=== PATIENT | male | born 1960 | race Caucasian/White ===

== ENCOUNTER → 2020-07-04 14:35 | Outpatient (CLI) | payer MEDICARE, SELFPAY ==
[2020-07-06 19:38] LABS: PSA, Free 0.97 ng/mL; Prostate Specific Ag 2.3 ng/mL (0.0-4.0)
== END ==
PROVIDERS: Visit Provider Urology
DX: R97.20 Elevated prostate specific antigen [PSA] (principal)
CPT/HCPCS: 36415; 84153; 84154

== ENCOUNTER → 2021-05-26 11:48 | Outpatient (CLI) | payer MEDICARE, SELFPAY ==
--- NOTE | 2021-05-26 12:35 | XR_ITS ---
PROCEDURE: XR CHEST PORTABLE CLINICAL HISTORY: COVID TESTING COMPARISON: No exams were available for comparison FINDINGS: The cardiomediastinal silhouette and pulmonary vascularity are within normal limits. COPD changes. No lobar consolidation or collapse. Faint increased density in the right upper lobe possibly due to developing nodule or scarring. There are no previous exams available for comparison. Follow-up suggested to confirm stability. No acute bony abnormalities. IMPRESSION: COPD. Questionable nodular density right upper lobe. Chest CT may provide further evaluation. Dictated by: Gaudencio Gonsalez MD 05/26/2021 13:39 Gaudencio Gonsalez MD in [place] 05/26/2021 13:39
[2021-05-26 13:04] LABS: Adenovirus,PCR Not Detected (NotDetected); Bordetella Pertussis Not Detected (NotDetected); Chlamydophila Pneumoniae, PCR Not Detected (NotDetected); Coronavirus 19, PCR Not Detected (NotDetected); Coronavirus 229E Not Detected (NotDetected); Coronavirus NL63 Not Detected (NotDetected); Coronavirus OC43 Not Detected (NotDetected); Coronovirus HKU1,PCR Not Detected (NotDetected); Human Metapneumovirus Not Detected (NotDetected); Influenza A, PCR Not Detected (NotDetected); Influenza AH1, 2009 Not Detected (NotDetected); Influenza AH1, PCR Not Detected (NotDetected); Influenza AH3,PCR Not Detected (NotDetected); Influenza B, PCR Not Detected (NotDetected); Microscopic, Urine URINE MICROSCOPIC (MICROSCOPIC); Mycoplasma Pneumoniae, PCR Not Detected (NotDetected); Parainfluenza 1, PCR Not Detected (NotDetected); Parainfluenza 2, PCR Not Detected (NotDetected); Parainfluenza 3, PCR Not Detected (NotDetected); Parainfluenza 4, PCR Not Detected (NotDetected); Respiratory Syncytial Virus Not Detected (NotDetected); Rhinovirus/Enterovirus Not Detected (NotDetected)
[2021-05-26 13:49] LABS: Basophils # 0.1 K/mm3 (0-0.2); Basophils % 1.4 % (0.1-2.0); Eosinophils # 0.1 K/mm3 (0.0-0.4); Eosinophils % 1.7 % (0.1-12.0); Hematocrit 43.9 % (42.0-52.0); Hemoglobin 14.6 g/dL (14.1-18.0); Lymphocytes # 1.9 K/mm3 (0.7-4.5); Lymphocytes % 31.3 % (10-50); Mean Corpuscular HGB Conc 33.3 g/dL (31.8-35.4); Mean Corpuscular Hemoglobin 32.3 pg (27.0-31.2); Mean Corpuscular Volume 97.1 fl (80-94); Mean Platelet Volume 8.6 fl (7.4-10.4); Monocytes # 0.4 K/mm3 (0.1-1.0); Monocytes % 6.9 % (1.7-9.3); Neutrophils # 3.5 K/mm3 (1.8-7.8); Neutrophils % 58.6 % (37.0-80.0); Platelet Count 280 K/mm3 (142-424); Red Blood Count 4.52 M/mm3 (4.60-6.20); Red Cell Distribution Width 12.3 % (11.5-17.5)
[2021-05-26 14:22] LABS: Appearance,Urine CLEAR (Clear); Bilirubin,Urine Negative (Negative); Blood, Urine TRACE-L (Negative); Color,Urine YELLOW (Yellow); Glucose,Urine (UA) Negative (Negative); Ketones,Urine Negative (Negative); Leukocyte Esterase,Urine Negative (Negative); Nitrate,Urine Negative (Negative); Protein,Urine Negative (Negative); Specific Gravity, Urine 1.015 (1.005-1.030)
[2021-05-26 14:49] LABS: WBC,Urine Occasional #/hpf (0-3)
[2021-05-26 14:50] LABS: Bacteria,Urine Trace /lpf; Squamous Epithelial Cell,Urine Occasional #/hpf (0-5)
== END ==
PROVIDERS: PCP Family Medicine; Visit Provider Family Medicine
DX: Z20.822 Contact with and (suspected) exposure to COVID-19 (principal)
CPT/HCPCS: 36415; 71045; 81001; 85025; 87581; 87632; 87798; C9803; U0003; U0005

== ENCOUNTER → 2022-02-03 15:01 | Outpatient (CLI) | payer MEDICARE, SELFPAY ==
--- NOTE | 2022-02-03 15:12 | XR_ITS ---
FINAL REPORT CLINICAL HISTORY: left lower rib pain FINDINGS: Left ribs Five views were obtained. There is no acute fracture or dislocation. No soft tissue abnormality is identified. IMPRESSION: No acute process. Reviewed, Interpreted and Dictated by Gus El III, MD Transcribed by Kaylin Fernández Authenticated and [facility]
--- NOTE | 2022-02-03 15:12 | XR_ITS ---
FINAL REPORT CLINICAL HISTORY: CHEST PAIN, left lower rib pain, smoker COMPARISON: 07/27/2020 FINDINGS: TWO-VIEW CHEST The heart size is normal. The mediastinum is normal. There is right apical scarring and pleural thickening. The lungs are otherwise clear. There is no pneumothorax. IMPRESSION: No acute cardiopulmonary process. Reviewed, Interpreted and Dictated by Gus El III, MD Transcribed by Kaylin Fernández Authenticated and [facility]
== END ==
PROVIDERS: PCP Family Medicine; Visit Provider Family Medicine
DX: R07.89 Other chest pain (principal)
CPT/HCPCS: 71046; 71100

== ENCOUNTER 2025-03-09 14:42 | Outpatient (CLI) | payer MEDICARE, SELFPAY ==
--- OUTSIDE RECORDS SUMMARY | 2025-03-09 14:44 | XMS_ITS | Clinical Summary ---
Author Organization [facility] Address [address] [place] [address] Phone Care Team Providers Care Corporate Buyer Name Role Phone Garo Lewis Primary Care Provider [phone] Allergies No known active allergies Medications dapagliflozin propanediol (FARXIGA) 10 mg Oral Tablet Take 1 Tablet by mouth daily. 30 Tablet 12/01/2023 12:34 PM EDT 4 Active atorvastatin (LIPITOR) 40 mg Oral Tablet Take 1 Tablet by mouth nightly. 30 Tablet 12/01/2023 12:34 PM EDT 4 Active lisinopriL (PRINIVIL;ZESTRIL) 20 mg Oral Tablet tablet Take 1 Tablet by mouth daily. 30 Tablet 12/01/2023 12:34 PM EDT 4 Active spironolactone (ALDACTONE) 25 mg Oral Tablet Take 1 Tablet by mouth daily. 30 Tablet 12/01/2023 12:34 PM EDT 4 Active apixaban (ELIQUIS) 5 mg Oral TabletIndications: Coronary artery disease involving miami coronary artery of miami heart without angina pectoris,Ischemic cardiomyopathy Take 1 Tablet by mouth 2 times daily. 28 Tablet 4 Active omeprazole (PRILOSEC) 40 mg Oral Capsule, Delayed Release(E.C.) TAKE 1 CAPSULE BY MOUTH BEFORE BREAKFAST 30 Capsule 1 5 Active metoprolol succinate (TOPROL-XL) 25 mg Oral Tablet Sustained Release 24 hr TAKE 1 TABLET BY MOUTH EVERY DAY 100 Tablet 5 Active Active Problems Problem Noted Date Diagnosed Date Acute ischemic stroke 11/28/2023 Hypertensive urgency 11/27/2023 Tobacco dependency 11/27/2023 Coronary artery disease invo lving miami coronary artery of miami heart without angina pectoris 05/06/2018 Ischemic cardiomyopathy 05/06/2018 COPD (chronic obstructive pulmonary disease) Infection 11/21/2012 Overview (12/25/2012): left tibia ST elevation myocardial infa rction involving left anterior descending (LAD) coronary artery Encounters Date Type Department Care Team Description 12/08/2024 [place] [address] Mo Sierra MD Medication Refill; Central Patient Navigator Outreach (Med Refills 100- H&V/) from Last 3 Months Immunizations Immunization Administration Dates Next Due Pneumococcal Polysaccharide 23 Valent 04/22/2018 Tdap 06/27/2012 Surgical History Surgery Date Site/Laterality Comments LEG SURGERY Left x12 due to infections KNEE SURGERY Right CARDIAC CATHETERIZATION Medical History Medical History Date Comments Infection 11/21/2012 left tibia SD (myocardial infarction) (HCC) 04/22/2018 LAD 100% - ballooned CAD (coronary artery disease) Shortness of breath Family History Medical History Relation Name Comments Heart Attack Father Fatal Anesth Problems Neg Hx Relation Name Status Comments Father Social History Tobacco Use Types Packs/Day Years Used Date Smoking Tobacco: Every Day Cigarettes 1.6 50.8 Started: 04/24/1974; Last attempted to quit: 04/24/2018 Smokeless Tobacco: Former Tobacco Cessation:Ready to Q uit: Not Asked; Counseling Given: Not Answered Alcohol Use Standard Drinks/Week Comments No 0 (1 standard drink = 0.6 oz pur e alcohol) [facility] Utilities Answer Date Recorded In the past 12 months has e electric, gas, oil, or water company threatened to shut off services in your home? No 11/28/2023 Overall Financial Resource Strain (CARDIA) Answe r Date Recorded How hard is it for you to pa y for the very basics like food, housing, medical care, and heating? Not very hard 11/28/2023 PHQ-2 Answer Date Recorded PHQ-2 Total Score 0 11/28/2023 [facility] [place] [facility] Occupat ional [facility] - Occupational Stress Questionnaire Answer Date Recorded Do you feel stress - tense, restless, nervous, or anxious, or unable to sleep at night because your mind is troubled all the time - these days? Not at all 11/28/2023 Exercise Vital Sign Answer Date Recorde d On average, how many days pe r week do you engage in moderate to strenuous exercise (like a brisk walk)? 5 days 11/28/2023 On average, how many minutes do you engage in exercise at this level? 30 min 11/28/2023 Hunger Vital Sign Answer Date Recorded Within the past 12 months, y ou worried that your food would run out before you got the money to buy more. Never true 11/28/19 24 Within the past 12 months, t he food you bought just didn't last and you didn't have money to get more. Never true 11/28/2023 [facility] IP Transportation Answer D ate Recorded In the past 12 months, has l ack of reliable transportation kept you from medical appointments, meetings, work or from getting things needed for daily living? No 11/28/2023 Sex and Gender Information Value Date Recorded Sex Assigned at Not on file Legal Sex Male 5:02 AM EDT Gender Identity Not on file Sexual Orientation Not on file Obstetrics History Last Filed Vital Signs Vital Sign Reading Time Taken Comments Blood Pressure 120/88 01/03/2024 2:11 PM EDT Pulse 80 01/03/2024 2:11 PM EDT Temperature 36.5 C (97.7 F) 12/01/2023 12:16 PM EDT Respiratory Rate 18 12/01/2023 12:16 PM EDT Oxygen Saturation 96% 01/03/2024 2:11 PM EDT Inhaled Oxygen Concentration - - Weight 82.6 kg (182 lb) 01/03/2024 2:11 PM EDT Height 182.9 cm (6') 01/03/2024 2:11 PM EDT Body Mass Index 24.68 01/03/2024 2:11 PM EDT Plan of Treatment Health Maintenance Due Date Last Done Comments Wellness Exam Medicare 09/08/1963 Hepatitis C Screening 09/08/1977 Cologuard 09/08/2004 FIT 09/08/2004 Sigmoidoscopy 09/08/2004 Virtual Colonography 09/08/2004 Low Dose Lung Cancer Screening 09/08/2009 Zoster (1 of 2) 09/08/2009 Pneumococcal Vaccine 50+ (2 of 2 - PCV) 04/22/2019 04/22/2018 RSV or 60+ (1 - Ris k 60-74 years 1-dose series) 2019 DTaP/TDaP/Td (2 - Td or Tdap) 06/27/2022, 08/28/1996 AAA Screening 09/08/2024 COVID-19 Vaccine (1 - 2023-2 5 season) 2025 Influenza Vaccine (#1) 2025 Colon Cancer Screening 10/25/2033 Colonoscopy 10/25/2033 10/26/2023 Hepatitis B Vaccine Aged Out No longe r eligible based on patient's age to complete this topic Meningococcal B Vaccine Aged Out No l onger eligible based on patient's age to complete this topic Procedures Procedure Name Priority Date/Time Associated Diagnosis Comments COLONOSCOPY Routine 10/26/2023 3:40 PM EDT Rectal bleeding Grade II hemorrhoids Screening for colon cancer from Last 3 Months or Most Recently Relevant to Health Maintenance Results * COLONOSCOPY (10/26/2023 3:40 PM EDT) Anatomical Region Laterality Modality Endoscopy Narrative 10/26/2023 3:46 PM EDT Table formatting from the original result was not included. Findings The bowel prep quality was fair, made good after additional irrigation and suction. One 3 mm polyp in the ascending colon; performed cold forceps biopsy with complete en bloc removal One 9 mm polyp in the splenic flexure; performed hot snare with complete en bloc removal and retrieved specimen One 4 mm polyp in the descending colon; performed cold forceps biopsy with complete removal One 4 mm polyp in the sigmoid colon; performed cold forceps biopsy with complete removal Internal large, prolapsing hemorrhoids observed during perianal exam Recommendation - Follow up pathology results. A pathology report should be available in MyChart in ~1 week. - An additional MyChart note with further recommendations should be available 1-2 weeks after the pathology report. - If you do not receive this information via MyChart or office phone call within 2-3 weeks, please call our office for findings & final recommendations. - Interval to next Colonoscopy will be based upon histology of polyp(s). - Referral to Colorectal Surgery for management of hemorrhoids. Indication Rectal bleeding, Screening for colon cancer, Grade II hemorrhoids Staff Staff Role John Vazquez MD Anesthesiologist Leigh Lincoln, SANDRA Valdivia MD PHD Performing Provider SANDRA Gibson CRNA, RN Innovation Analyst Medications See Anesthesia Record. Preprocedure A history and physical has been performed, and patient medication allergies have been reviewed. The patient's tolerance of previous anesthesia has been reviewed. The risks and benefits of the procedure and the sedation options and risks were discussed with the patient. All questions were answered and informed consent obtained. ASA 3 - Patient with severe systemic disease Details of the Procedure The patient underwent monitored anesthesia care, which was administered by an anesthesia professional. The patient's blood pressure, heart rate, level of consciousness, oxygen, respirations, ECG and ETCO2 were monitored throughout the procedure. A digital rectal exam was performed. The scope was introduced through the anus and advanced to the cecum. Retroflexion was performed in the rectum. Bowel prep was adequate. The patient's estimated blood loss was minimal (<5 mL). The procedure was not difficult. The patient tolerated the procedure well. There were no apparent adverse events. Patient provided education and educated on specific discharge instructions. Patient educated on medications given during the procedure and new medications for discharge. Patient verbalizes understanding of discharge education. Patient stable and awaiting transport for discharge. Events Procedure Events Event Event Time ENDO SCOPE IN TIME 10/26/2023 3:05 PM ENDO SCOPE OUT TIME 10/26/2023 3:12 PM ENDO SCOPE IN TIME 10/26/2023 3:17 PM ENDO CECUM REACHED 10/26/2023 3:21 PM ENDO SCOPE OUT TIME 10/26/2023 3:38 PM Specimens ID Type Source Tests Collected by Time 1 : gastric biopsy Tissue Gastric PATHOLOGY TISSUE REQUEST Ez Valdivia MD PHD 10/26/2023 1508 2 : lower esophagus biopsy Tissue Esophagus PATHOLOGY TISSUE REQUEST Ez Valdivia MD PHD 10/26/2023 1511 3 : ascending colon polyp via forceps Tissue Large Intestine, Right/Ascending Colon PATHOLOGY TISSUE REQUEST Ez Valdivia MD PHD 10/26/2023 1523 4 : splenic flexure polyp via hot snare Tissue Splenic flexure PATHOLOGY TISSUE REQUEST Ez Valdivia MD PHD 10/26/2023 1533 5 : descending colon polyp via forceps Tissue Large Intestine, Left/Descending Colon PATHOLOGY TISSUE REQUEST Ez Valdivia MD PHD 10/26/2023 1533 6 : sigmoid colon polyp via forceps Tissue Large Intestine, Sigmoid Colon PATHOLOGY TISSUE REQUEST Ez Valdivia MD PHD 10/26/2023 1534 Anesthesia Event Time In Patient In - Proc. Room 02:51 PM Patient Out - Proc. Room 03:40 PM Ez Valdivia MD PHD ENDOSCOPY PROCEDURE ORDERAB LES Final Result from Last 3 Months or Most Recently Relevant to Health Maintenance Insurance [employer] MEDICARE HMO MR [employer] MEDICARE HMO MR HU[employer] MEDICARE HMO MR Advance Directives For more information, please contact: [phone] * Full Code (Latest Code Status on File) Date Activated Date Inactivated Comments 11/27/2023 4:00 PM 12/01/2023 6:26 PM * Full Code Date Activated Date Inactivated Comments 04/22/2018 5:41 PM 04/24/2018 4:34 PM * Full Code Date Activated Date Inactivated Comments 04/22/2018 7:21 AM 04/22/2018 5:41 PM Care Teams Corporate Buyer Relationship Specialty Start Date End Date Garo Lewis [address] [place] [address] [address] [place] [address] PCP - General Family Medicine 06/27/12
--- OUTSIDE RECORDS SUMMARY | 2025-03-09 14:44 | XMS_ITS | Clinical Summary ---
Author Organization [facility] Address [facility] [address] [place] [address] Phone Care Team Providers Care Cloth Boil Off Machine Operator Name Role Phone Gus Pal MD [phone] Conditions or Problems No information available. Medications No information available. Medications Administered No information available. Allergies, Adverse Reactions, Alerts No information available. Results No information available. Plan of Care No information available. Procedures No information available. Vital Signs No information available. Immunizations No information available. Advance Directives No information available.
--- OUTSIDE RECORDS SUMMARY | 2025-03-09 14:44 | XMS_ITS ---
Author Organization Unknown Results OrderDate OrderTestName ResultName ResultDate Value Units Range AbnormalFlag ResultStatus ObservationNotes TestCode ResultCode DateRecorded AccessionNumber DiagnosticSectionCode DiagnosticSectionName Sequence Interpretation Cust om 08/24/2024 00:00:00 P-PSA PSA [id number]:00:00 2.63 ng/mL <4.00 - ng/mL Reviewed Garo Lewis 08/29/2024 8:51:15 AM > See phone encounter P-PSA Coding PSA 08/24/2024 00:00: 00:00:00P-Lipid PanelTriglycerides 2211-04-40W22:00:0084mg/dL<150 - mg/dLGaro Medina 08/29/2024 8:51:15 AM > See phone encounter Coding P-Lipid Panel Coding Triglycerides 08/24/2024 00:00: 00:00:00P-Lipid PanelNon-HDL Cholesterol 4011-01-03F40:00:0084mg/dL<130 - mg/dLGaro Medina 08/29/2024 8:51:15 AM > See phone encounter Coding P-Lipid Panel Coding Non-HDL Cholesterol 08/24/2024 00:00: 00:00:00P-Lipid PanelLDL/HDL Ratio 8213-43-44C35:00:002.1Ratio<3.3 - RatioReGaro Vasquez 08/29/2024 8:51:15 AM > See phone encounter Coding P-Lipid Panel Coding LDL/HDL Ratio 08/24/2024 00:00: 00:00:00P-Lipid PanelLDL Cholesterol (Calculation) 3081-10-71U06:00:0067mg/dL<130 - mg/dLGaro Medina Fernandez 08/29/2024 8:51:15 AM > See phone encounter Coding P-Lipid Panel Coding LDL Cholesterol (Calculation ) 08/24/2024 00:00: 00:00:00P-Lipid PanelHDL Cholesterol 6153-57-06E74:00:0032mg/dL>39 - mg/dLGaro Doyle 08/29/2024 8:51:15 AM > See phone encounter Coding P-Lipid Panel Coding HDL Cholesterol 08/24/2024 00:00: 00:00:00P-Lipid PanelCholesterol 1861-42-26E76:00:72920jn/dL<200 - mg/dLGaro Medina 08/29/2024 8:51:15 AM > See phone encounter Coding P-Lipid Panel Coding Cholesterol 08/24/2024 00:00: 00:00:00P-Lipid PanelCholesterol / HDL Ratio 5293-65-01S21:00:003.44Nwefx8.00-4.99 - RatioaGro Medina 08/29/2024 8:51:15 AM > See phone encounter Coding P-Lipid Panel Coding Cholesterol / HDL Ratio 08/24/2024 00:00: 00:00:00P-Comprehensive Metabolic Panel (CMP) Oxpiebq4171-57-26D11:00:006.8g/dL6.0-8.3 - g/dLGaro Medina 08/29/2024 8:51:15 AM > See phone encounter Coding P-Comprehensive Metabolic Pa allan (CMP) Coding Protein 08/24/2024 00:00: 00:00:00P-Comprehensive Metabolic Panel (CMP) Sfjsuj0121-60-79B31:00:54951zbbi/H863-379 - mmol/LRGaro Awad 08/29/2024 8:51:15 AM > See phone encounter Coding P-Comprehensive Metabolic Pa allan (CMP) Coding Sodium 08/24/2024 00:00: 00:00:00P-Comprehensive Metabolic Panel (CMP) Mdcbynquj4936-96-75Q34:00:004.5mmol/L3.5-5.3 - mmol/Garo Doyle 08/29/2024 8:51:15 AM > See phone encounter Coding P-Comprehensive Metabolic Pa allan (CMP) Coding Potassium 08/24/2024 00:00: 00:00:00P-Comprehensive Metabolic Panel (CMP) Skgwzqb3041-58-90D57:00:0094mg/dL65-99 - mg/dLGaro Medina 08/29/2024 8:51:15 AM > See phone encounter Coding P-Comprehensive Metabolic Pa allan (CMP) Coding Glucose 08/24/2024 00:00: 00:00:00P-Comprehensive Metabolic Panel (CMP) Hacpwflluo0325-08-00X99:00:001.13mg/dL0.70-1.30 - mg/dLGaro Medina 08/29/2024 8:51:15 AM > See phone encounter Coding P-Comprehensive Metabolic Pa allan (CMP) Coding Creatinine 08/24/2024 00:00: 00:00:00P-Comprehensive Metabolic Panel (CMP)CO2 0081-63-65A89:00:0030mmol/L22-32 - mmol/Garo Doyle 08/29/2024 8:51:15 AM > See phone encounter Coding P-Comprehensive Metabolic Pa allan (CMP) Coding CO2 08/24/2024 00:00: 00:00:00P-Comprehensive Metabolic Panel (CMP) Vbigofub8412-81-05M91:00:93746psix/L97-108 - mmol/Garo Doyle 08/29/2024 8:51:15 AM > See phone encounter Coding P-Comprehensive Metabolic Pa allan (CMP) Coding Chloride 08/24/2024 00:00: 00:00:00P-Comprehensive Metabolic Panel (CMP) Ebcphhb1941-68-27R61:00:009.6mg/dL8.6-10.4 - mg/dLGaro Medina 08/29/2024 8:51:15 AM > See phone encounter Coding P-Comprehensive Metabolic Pa allan (CMP) Coding Calcium 08/24/2024 00:00: 00:00:00P-Comprehensive Metabolic Panel (CMP)BUN 5002-38-72M06:00:0011mg/dL8-23 - mg/dLGaro Medina 08/29/2024 8:51:15 AM > See phone encounter Coding P-Comprehensive Metabolic Pa allan (CMP) Coding BUN 08/24/2024 00:00: 00:00:00P-Comprehensive Metabolic Panel (CMP) Bilirubin, Flxgk3453-82-67C78:00:000.7mg/dL<0.2-1.2 - mg/dLGaro Medina 08/29/2024 8:51:15 AM > See phone encounter Coding P-Comprehensive Metabolic Pa allan (CMP) Coding Bilirubin, Total 08/24/2024 00:00: 00:00:00P-Comprehensive Metabolic Panel (CMP)AST (SGOT)7652-38-34A30:00:0014IU/L<5-46 - IU/LReviewedNorfleetGaro 08/29/2024 8:51:15 AM > See phone encounter Coding P-Comprehensive Metabolic Pa allan (CMP) Coding AST (SGOT) 08/24/2024 00:00: 00:00:00P-Comprehensive Metabolic Panel (CMP)ALT (SGPT)1997-15-83D32:00:0015IU/L<5-55 - IU/LReviewedNorfleetGaro 08/29/2024 8:51:15 AM > See phone encounter Coding P-Comprehensive Metabolic Pa allan (CMP) Coding ALT (SGPT) 08/24/2024 00:00: 00:00:00P-Comprehensive Metabolic Panel (CMP) Alkaline Dwanyjlqryn6002-88-21E81:00:0078IU/L40-129 - IU/LReviewedNorfleet,R Fernandez 08/29/2024 8:51:15 AM > See phone encounter Coding P-Comprehensive Metabolic Pa allan (CMP) Coding Alkaline Phosphatase 08/24/2024 00:00: 00:00:00P-Comprehensive Metabolic Panel (CMP) Szzjzqv5606-59-86G30:00:004.4g/dL3.5-5.3 - g/dLGaro Median 08/29/2024 8:51:15 AM > See phone encounter Coding P-Comprehensive Metabolic Pa allan (CMP) Coding Albumin 08/24/2024 00:00: 00:00:00P-Comprehensive Metabolic Panel (CMP)A/G Hhxav3727-31-23T95:00:001.81.1-2.5 -Garo Medina 08/29/2024 8:51:15 AM > See phone encounter Coding P-Comprehensive Metabolic Pa allan (CMP) Coding A/G Ratio 08/24/2024 00:00:00
--- NOTE | 2025-03-09 14:46 | CT_ITS ---
FINAL REPORT TECHNIQUE: Axial CT without IV contrast administration using low dose protocol. This study was performed with techniques to keep radiation doses as low as reasonably achievable, (ALARA). Individualized dose reduction techniques using automated exposure control or adjustment of mA and/or kV according to the patient's size were employed. CLINICAL HISTORY: TOBACCO USE current smoker 1ppd x 50 years COMPARISON: None FINDINGS: CT CHEST LOW DOSE SCREENING HISTORY: Screening exam for lung cancer, current smoker, 07-[id number]-[id number] history. DOSE: CTDI vol: 2.90 mGy, DLP: 116.20 mGy*cm There is mild nodularity with bronchiectasis and bronchial wall thickening in the right middle lobe and lingula. These findings may be seen with recurrent aspiration. There is no suspicious pulmonary nodule. Emphysema is noted. There is a small hiatal hernia. There is mural calcification of the left ventricle cardiac apex. This may be seen with prior cardiac infarct. IMPRESSION: No evidence of primary lung neoplasm. Right middle lobe and lingular abnormalities as above, which may be seen with recurrent infection including recurrent aspiration. LUNG RADS CATEGORY 2S RECOMMENDATION: 12 month LDCT follow up Reviewed, Interpreted and Dictated by Cassy Mays MD Transcribed by Nusrat Mao Authenticated and [facility]
== END 2025-03-09 23:59 | disposition home or self-care (01) ==
LOC: RAD 14:42
PROVIDERS: PCP Family Medicine; Visit Provider Family Medicine
DX: R91.8 Other nonspecific abnormal finding of lung field (principal); F17.210 Nicotine dependence, cigarettes, uncomplicated
CPT/HCPCS: 71271